=== PATIENT | male | born 1955 | race Caucasian/White ===

== ENCOUNTER 2016-11-30 10:27 | Inpatient (IN) | payer OTHER ==
[~2016-11-30] VITALS: Ht 172.7 cm; Wt 83.2 kg
[~2016-11-30 10:27] MED LIST: AMO500 PO; ASPIR 8181 MG PO; ATENOLOL50 MG PO; BIA500 PO; FER300 PO; FOL1 PO; GOOD SENSE ASPI81 M3 PO; LAC PO; PRI20 PO; THI100 PO; ZESTRIL20 MG PO
[2016-11-30 11:50] LABS: BASOPHIL % 0.3 % (0-2); CALCIUM 7.9 mg/dL (8.5-10.1); CARBON DIOXIDE 24.8 mmol/L (21-32); CHLORIDE SERUM 110 mmol/L (98-107); CREATININE SERUM 0.9 mg/dL (0.7-1.3); GFR1 > 60 mL/min; GLUCOSE SERUM 173 mg/dL (74-106); PLATELET COUNT 237 x10^3mcL (130-400); POTASSIUM SERUM 3.6 mmol/L (3.5-5.1); SODIUM SERUM 145 mmol/L (136-145)
[2016-11-30 11:51] LABS: RED CELL DISTRIBUTION WIDTH 17.4 % (11.5-14.5); rbc morphology (normal/abnorm) ABNORMAL (NORMAL)
[2016-11-30 11:54] LABS: ALKALINE PHOSPHATASE 77 U/L (46-116); ALT/SGPT 28 U/L (16-63); AST/SGOT 13 U/L (15-37); TOTAL PROTEIN, SERUM 6.2 g/dL (6.4-8.2)
[2016-11-30 11:55] LABS: ALBUMIN 3.1 g/dL (3.4-5.0)
[2016-11-30 14:22] VITALS: BP 120/67
[2016-11-30 16:55] VITALS: BP 102/52; BP 138/76
[2016-11-30 17:51] LABS: MAGNESIUM 2.3 mg/dL (1.8-2.4); PHOSPHOROUS 2.1 mg/dL (2.5-4.9)
[2016-11-30 17:55] LABS: CHOLESTEROL/HDL RATIO 3.1
[2016-11-30 17:58] LABS: T3 TOTAL 1.02 ng/mL
[2016-11-30 18:01] LABS: FREE T4 0.91 ng/dL (0.76-1.46); FREE THYROXINE INDEX 2.3 ug/dL (1.4-4.5); T4(THYROXINE) 6.7 ug/dL (4.7-13.3)
[2016-11-30 18:06] LABS: IRON 9 ug/dL (65-170); TOTAL IRON BINDING CAPACITY 363 ug/dL (250-450)
[2016-11-30 18:37] LABS: RED BLOOD CELLS 3.95 M/mm3 (4.52-5.90)
[2016-11-30 21:42] VITALS: BP 111/56
[2016-11-30 23:07] LABS: microscopic required? NO
[2016-11-30 23:19] LABS: UA SPECIFIC GRAVITY >=1.030 (1.005-1.035); urine erythrocyte NEGATIVE (NEGATIVE)
[2016-11-30 23:41] LABS: AMPHETAMINE QUAL UR NONE DETECTED (NEG <=1000)
[2016-12-01 06:19] VITALS: BP 117/65
[2016-12-01 07:19] LABS: BASOPHIL % 0.7 % (0-2); PLATELET COUNT 218 x10^3mcL (130-400)
[2016-12-01 07:21] LABS: RED CELL DISTRIBUTION WIDTH 17.1 % (11.5-14.5)
[2016-12-01 08:21] LABS: ALKALINE PHOSPHATASE 69 U/L (46-116); ALT/SGPT 29 U/L (16-63); AST/SGOT 14 U/L (15-37); BILIRUBIN TOTAL 0.2 mg/dL (0.20-1.00); CARBON DIOXIDE 25.6 mmol/L (21-32); CHLORIDE SERUM 105 mmol/L (98-107); CREATININE SERUM 0.7 mg/dL (0.7-1.3); GFR1 > 60 mL/min; GLUCOSE SERUM 100 mg/dL (74-106); POTASSIUM SERUM 3.9 mmol/L (3.5-5.1); SODIUM SERUM 145 mmol/L (136-145)
[2016-12-01 08:24] LABS: TOTAL PROTEIN, SERUM 5.7 g/dL (6.4-8.2)
[2016-12-01 08:46] LABS: rbc morphology (normal/abnorm) ABNORMAL (NORMAL)
[2016-12-01 09:22] VITALS: BP 118/55
[2016-12-01 12:38] VITALS: BP 116/55
[2016-12-01 14:28] VITALS: BP 110/63
[2016-12-01 17:07] VITALS: BP 118/63
[2016-12-01 20:57] VITALS: BP 115/61
[2016-12-02 05:13] VITALS: BP 119/66
[2016-12-02 06:53] LABS: CALCIUM 8.1 mg/dL (8.5-10.1); CARBON DIOXIDE 27.7 mmol/L (21-32); CHLORIDE SERUM 106 mmol/L (98-107); CREATININE SERUM 0.7 mg/dL (0.7-1.3); GFR1 > 60 mL/min; GLUCOSE SERUM 86 mg/dL (74-106); PHOSPHOROUS 2.8 mg/dL (2.5-4.9); POTASSIUM SERUM 3.4 mmol/L (3.5-5.1); SODIUM SERUM 141 mmol/L (136-145)
[2016-12-02 07:13] LABS: BASOPHIL % 0.7 % (0-2); PLATELET COUNT 215 x10^3mcL (130-400)
[2016-12-02 07:20] LABS: RED CELL DISTRIBUTION WIDTH 16.8 % (11.5-14.5); rbc morphology (normal/abnorm) ABNORMAL (NORMAL)
[2016-12-02] MEDS ORDERED: VITAMIN C100 M2 PO (08:17)
[2016-12-02] MEDS ORDERED: FERROUS SULFAT325 M2 PO (08:17)
[2016-12-02] MEDS ORDERED: COLACE100 MG PO (08:17)
[2016-12-02] MEDS ORDERED: FOL1 PO (09:20)
[2016-12-02] MEDS ORDERED: PRI20 PO (09:20)
[2016-12-02 09:31] VITALS: BP 138/73
[2016-12-02 10:40] VITALS: BP 119/66
== END 2016-12-02 14:53 | disposition home or self-care (01) | DRG 48 ==
LOC: ED 10:27 → DU 12:17
PROVIDERS: Emergency Medicine; Internal Medicine; ADMIT Family Medicine
PROC: 0W3P8ZZ Control Bleeding in Gastrointestinal Tract, Via Natural or Artificial Opening Endoscopic (ICD-10-PCS; principal; 2016-12-01 12:45)
DX: G90.8 Other disorders of autonomic nervous system (principal); N17.0 Acute kidney failure with tubular necrosis; K31.82 Dieulafoy lesion (hemorrhagic) of stomach and duodenum; E44.0 Moderate protein-calorie malnutrition; E83.39 Other disorders of phosphorus metabolism; D50.9 Iron deficiency anemia, unspecified; I10 Essential (primary) hypertension; E86.0 Dehydration; K29.90 Gastroduodenitis, unspecified, without bleeding; Z81.1 Family history of alcohol abuse and dependence; Z68.27 Body mass index [BMI] 27.0-27.9, adult; Z90.49 Acquired absence of other specified parts of digestive tract; Z82.49 Family history of ischemic heart disease and other diseases of the circulatory system
CPT/HCPCS: 43235; 82962; 83880; 84439; J1200; J1610; J2250; J2310; J2916; J3010; J3490; J7030; Q0092